=== PATIENT | female | born 1965 | race African-American/Black ===

== ENCOUNTER → 2016-03-18 | Day surgery (SDC) | payer OTHER ==
[~2016-03-18] VITALS: Ht 152.4 cm; Wt 106.6 kg
[~2016-03-18] MED LIST: AMLODIPINE BESY10 M1 PO; TENORMIN50 M1 PO
--- NOTE | 2016-03-18 13:55 | Operative Report ---
Operative/Inv Procedure Report Surgery Date: 03/18/16 Name of Procedure: Extended panniculectomy Pre-Operative Diagnosis: Excessive abdominal pannus chronic intertrigo Post-Operative Diagnosis: Same Estimated Blood Loss: scant (200) Surgeon/Last Ironer: BARB ESPAÑA MD Anesthesia: general endotracheal tube Operative/Procedure Note Note: The patient was counseled extensively in regards to the procedure the alternatives the risks and expected outcomes as relates to her request for surgical intervention for chronic intertrigo. Due to the patient's body habitus and her desires she is requesting removal of the umbilicus. The umbilicus will need to be removed on today's preoperative evaluation since it hangs below the level of the normal panniculectomy incision will also allow me to treat the symptoms more fully. We talked about the risks including infection bleeding open wound pain numbness's of skin injury to surrounding and deeper structures and a visible permanent scarring possibly unsightly or symptomatic. In addition she was given a SPS informed consent we discussed further today. She was marked in the standing position with a measuring tape for symmetry. In the areas that would be treated those that would not. She was then taken to the operating room placed supine on table. Venodyne boots are placed and then general anesthesia was established intravenous antibiotics were given. The abdomen was prepped and draped in usual sterile fashion. The incisions were deepened and the pannus was removed along the abdominal wall fascia. There was significant extra time required due to the patient's body habitus. We just needed to be divided and the empty stalk was left intact. The vasculature was excessive with vessels exceeding three-eighths of an inch which needs to be tied additionally. Hip elation of the pannus which was significant laid operative time as well. The length of her incision and the closure was excessive and bot beyond the usual and customary panniculectomy. The incision was closed in 4 layers over 2 drains.
== END ==
LOC: STS 02:00
DX: L30.4 Erythema intertrigo (principal); E65 Localized adiposity; Z98.84 Bariatric surgery status
CPT/HCPCS: 88302; J0131; J0690; J1100; J1630; J2250; J2405

== ENCOUNTER → 2017-06-15 | Day surgery (SDC) | payer OTHER ==
[~2017-06-15] VITALS: Ht 152.4 cm; Wt 95.3 kg
--- NOTE | 2017-06-15 14:24 | Operative Report ---
Operative/Inv Procedure Report Surgery Date: 06/15/17 Name of Procedure: Bilateral breast reduction free nipple graftexcessive Pre-Operative Diagnosis: Symptomatically macromastia Post-Operative Diagnosis: Same Estimated Blood Loss: scant (400) Surgeon/Ux Visual Designer: Lowell Wade MD Anesthesia: general endotracheal tube Operative/Procedure Note Note: Patient was counseled extensively regards to the procedure the alternatives risks and expected outcomes as relates to request for surgical intervention to treat symptomatic bilateral macromastia. Patient is 52 cm to the nipple. We talked about the free nipple graft and she has accepted this including failure to breast-feed failure have sexual sensation and stimulus of the nipple, erectile function of the nipple and he'll be flat in appearance. We also talked about the risks of partial complete loss of the nipple areolar graft in addition to skin of the breast cells. She signed a SPS informed consent has no questions regarding it today. She was marked in the standing position for a Smith pattern skin excision. She signed informed consent after additional discussion today of her acceptance of the graft. She was given options of not having it performed today. She will brought to the operating placed supine on the table Venodyne boots are placed and then general anesthesia was established antibiotics were given. The chest was prepped and draped in usual sterile fashion. A inverted V segment between the vertical limbs was de-epithelialized as well as an inferior soft tissue pedicle. Resection was then carried out after removing the nipple areolar complex. Deep 2-0 Vicryl used to tack in the goals to improve shape and projection. Temporary closure was carried out and the patient was put in the sitting position to assess the location of the nipple areola complexes. 3 layer closure was then carried out of all wounds.
== END ==
LOC: STS 02:27
DX: N62 Hypertrophy of breast (principal); M25.519 Pain in unspecified shoulder; M62.830 Muscle spasm of back; M54.9 Dorsalgia, unspecified; E11.9 Type 2 diabetes mellitus without complications; Z79.84 Long term (current) use of oral hypoglycemic drugs; E06.3 Autoimmune thyroiditis
CPT/HCPCS: 88305; J0131; J0690; J2250; J3490; Q9968